=== PATIENT | female | born 1985 | race Caucasian/White ===

== ENCOUNTER 2024-11-05 09:15 | Day surgery (SDC) | payer BC ==
[~2024-11-05] VITALS: Ht 165.1 cm; Wt 98.9 kg
[~2024-11-05 09:15] MED LIST: LIDOCAINE 2% 100 MG/5 ML SDV (FOR ANES.) As Ordered ONE; MIDAZOLAM INJ 2 MG/2 ML VIAL As Ordered ONE; ONDANSETRON 4MG 2ML VIAL As Ordered ONE; OXYC1TAB23 PO; TAMS1CAP17 PO; dexAMETHasone 4 MG/ML 1 ML VIAL As Ordered ONE
[2024-11-05] MEDS ORDERED: LR 1,000 ML IV SCH ×2 (09:25→11:10)
[2024-11-05] MEDS ORDERED: LIDOCAINE 1% SDV 5 ML VIAL SC PRN (09:25)
[2024-11-05] MEDS ORDERED: OXYB5TAB14 PO (09:40)
[2024-11-05] MEDS ORDERED: IBUP-1114 PO (09:51)
[2024-11-05] MEDS: ceFAZolin SOD 2 GM IV ONCE IV ONE (10:18)
[2024-11-05] MEDS ORDERED: ACETAMINOPHEN 1000MG/100ML IV BAG As Ordered ONE (10:20)
[2024-11-05] MEDS: ISOVUE-300 61% 100 ML VIAL As Ordered ONE (11:00)
[2024-11-05] MEDS ORDERED: HYDROMORPHONE HCL 0.5 MG/0.5 ML SYRINGE IV PRN (11:10)
[2024-11-05] MEDS ORDERED: ONDANSETRON 4MG 2ML VIAL IV PRN (11:10)
[2024-11-05] MEDS ORDERED: PERCOCET 5MG/325MG TAB PO PRN (11:25)
[2024-11-05 12:03] VITALS: BP 125/74; TEMP 97.1; O2SAT 96
== END 2024-11-05 12:13 | disposition home or self-care (01) ==
LOC: M SDC 09:15
PROVIDERS: ATTEND Urology
DX: N13.2 Hydronephrosis with renal and ureteral calculous obstruction (principal)
CPT/HCPCS: 52356; 74420; 82365; C1769; C1894; C2617; J0131; J0690; J1100; J2250; J2405; J3010; Q9967